=== PATIENT | female | born 1950 | race Asian ===

== ENCOUNTER 2017-09-27 15:02 | Outpatient (CLI) | payer MEDICARE | END 2017-09-27 15:03 | disposition home or self-care (01) | LOC: BICMAMMO 15:02 | PROVIDERS: ATTEND Family Medicine | DX: Z12.31 Encounter for screening mammogram for malignant neoplasm of breast (principal) | CPT/HCPCS: 77063; 77067 ==

== ENCOUNTER 2018-11-23 13:51 | Outpatient (CLI) | payer MEDICARE ==
--- NOTE | 2018-11-23 15:35 | BD ---
Exam: DEXA Bone Density 11/23/18 INDICATION: History of osteoporosis screening. COMPARISON: None. FINDINGS: Lumbar Spine: BMD (g/cm2) T-SCORE Z-SCORE L1 0.943 -0.4 1.3 L2 0.986 -0.4 1.6 L3 1.101 0.2 2.2 L4 1.012 -0.4 1.7 L1-L4 1.016 -0.3 1.7 Left Femoral Neck: 0.799 -0.4 1.2 Left Total Femur: 0.969 0.2 1.6 Impression: Based on WHO criteria, patient's bone mineral density is considered within normal limits. Patient is at low risk for fracture. POS: OFF
--- NOTE | 2018-11-23 15:36 | MMO ---
Bilateral MAMMO Bilat Screen [facility]. CLINICAL HISTORY: Patient is 67 years old and is seen for screening. The patient has no family history of breast cancer. The patient has no personal history of cancer. The patient has a history of right Excisional Biopsy in 2006 - benign. VIEWS: The views performed were: bilateral craniocaudal with tomosynthesis and bilateral mediolateral oblique with tomosynthesis. FILMS COMPARED: The present examination has been compared to prior imaging studies performed at [facility] on 05/08/2014, 07/10/2015, 08/18/2016 and 09/27/2017. This study has been interpreted with the assistance of computer-aided detection. MAMMOGRAM FINDINGS: The breasts are almost entirely fat. There are benign appearing calcifications seen in both breasts. There are no suspicious masses, suspicious calcifications, or new areas of architectural distortion. IMPRESSION: THERE IS NO MAMMOGRAPHIC EVIDENCE OF MALIGNANCY. A ROUTINE FOLLOW-UP MAMMOGRAM IN 1 YEAR IS RECOMMENDED. THE RESULTS OF THIS EXAM WERE SENT TO THE PATIENT. ACR BI-RADS Category 2 - Benign finding MAMMOGRAPHY NOTE: 1. A negative mammogram report should not delay a biopsy if a dominant of clinically suspicious mass is present. 2. Approximately 10% to 15% of breast cancers are not detected by mammography. 3. Adenosis and dense breasts may obscure an underlying neoplasm. Reported by: FLETCHER FLYNN MD Electonically Signed: [id number]
== END 2018-11-23 13:52 | disposition home or self-care (01) ==
LOC: BICMAMMO 13:51
DX: Z12.31 Encounter for screening mammogram for malignant neoplasm of breast (principal); Z13.820 Encounter for screening for osteoporosis
CPT/HCPCS: 77063; 77067; 77080

== ENCOUNTER 2019-11-26 11:51 | Outpatient (CLI) | payer MEDICARE ==
--- NOTE | 2019-11-26 13:08 | MMO ---
Bilateral MAMMO Bilat Screen [facility]. CLINICAL HISTORY: Patient is 68 years old and is seen for screening. The patient has no family history of breast cancer. The patient has no personal history of cancer. The patient has a history of right Excisional Biopsy in 2006 - benign. VIEWS: The views performed were: bilateral craniocaudal with tomosynthesis and bilateral mediolateral oblique with tomosynthesis. FILMS COMPARED: The present examination has been compared to prior imaging studies performed at [facility] on 07/10/2015, 08/18/2016, 09/27/2017 and 11/23/2018. This study has been interpreted with the assistance of computer-aided detection. MAMMOGRAM FINDINGS: The breasts are almost entirely fat. There are no suspicious masses, suspicious calcifications, or new areas of architectural distortion. IMPRESSION: THERE IS NO MAMMOGRAPHIC EVIDENCE OF MALIGNANCY. A ROUTINE FOLLOW-UP MAMMOGRAM IN 1 YEAR IS RECOMMENDED. THE RESULTS OF THIS EXAM WERE SENT TO THE PATIENT. ACR BI-RADS Category 1 - Negative MAMMOGRAPHY NOTE: 1. A negative mammogram report should not delay a biopsy if a dominant of clinically suspicious mass is present. 2. Approximately 10% to 15% of breast cancers are not detected by mammography. 3. Adenosis and dense breasts may obscure an underlying neoplasm. Reported by: TATIANA PURI MD Electonically Signed: [id number]
== END 2019-11-26 11:52 | disposition home or self-care (01) ==
LOC: BICMAMMO 11:51
PROVIDERS: ATTEND Family Medicine
DX: Z12.31 Encounter for screening mammogram for malignant neoplasm of breast (principal); Z91.89 Other specified personal risk factors, not elsewhere classified
CPT/HCPCS: 77063; 77067

== ENCOUNTER 2020-11-26 12:23 | Outpatient (CLI) | payer MEDICARE | END 2020-11-26 12:24 | disposition home or self-care (01) | LOC: BICMAMMO 12:23 | PROVIDERS: ATTEND Family Medicine | DX: Z12.31 Encounter for screening mammogram for malignant neoplasm of breast (principal) | CPT/HCPCS: 77063; 77067 ==

== ENCOUNTER 2020-12-08 12:58 | Outpatient (CLI) | payer MEDICARE, OTHER | END 2020-12-08 12:59 | disposition home or self-care (01) | LOC: BICCT 12:58 | PROVIDERS: ATTEND Neurological Surgery | DX: M54.50 Low back pain, unspecified (principal); R19.02 Left upper quadrant abdominal swelling, mass and lump; M47.816 Spondylosis without myelopathy or radiculopathy, lumbar region; M48.061 Spinal stenosis, lumbar region without neurogenic claudication; Z98.890 Other specified postprocedural states | CPT/HCPCS: 72131 ==

== ENCOUNTER 2021-01-26 12:05 | Outpatient (CLI) | payer MEDICARE | END 2021-01-26 12:06 | disposition home or self-care (01) | LOC: PET 12:05 | PROVIDERS: ATTEND Internal Medicine Hematology & Oncology | DX: E27.8 Other specified disorders of adrenal gland (principal); C74.12 Malignant neoplasm of medulla of left adrenal gland | CPT/HCPCS: 78815; A9552 ==

== ENCOUNTER 2021-12-21 10:40 | Outpatient (CLI) | payer MEDICARE, OTHER | END 2021-12-21 10:41 | disposition home or self-care (01) | LOC: BICMAMMO 10:40 | PROVIDERS: ATTEND Family Medicine | DX: Z12.31 Encounter for screening mammogram for malignant neoplasm of breast (principal); Z91.89 Other specified personal risk factors, not elsewhere classified | CPT/HCPCS: 77063; 77067 ==

== ENCOUNTER 2023-08-21 07:56 | Outpatient (CLI) | payer OTHER ==
[2023-08-21 09:44] LABS: #Eosinphils 0.33 10x3/uL (0.0-0.5); #Monocytes 0.43 10x3/uL (0.0-1.1); #Neutrophils 2.62 10x3/uL (1.5-8.4); %Basophils 1.6 % (0.0-2.0); %Eosinophils 5.3 % (0.0-6.0); %Lymphocytes 43.9 % (18.0-47.0); %Monocytes 6.9 % (0.0-10.0); Hematocrit 36.6 % (34.9-44.5); Hemoglobin 12.3 g/dL (12.0-15.5); Mean Corpuscular HGB CONC 33.6 g/dL (32.0-36.0); Mean Corpuscular Hemoglobin 28.1 pg (27.0-33.0); Mean Corpuscular Volume 83.6 fL (81.6-98.3); Mean Platelet Volume 12.2 fL (7.4-10.4); Platelet Count 238 10x3/uL (150-450); RBC Distribution Width 13.7 % (11.5-14.5); Red Blood Cell (RBC) Count 4.38 10x6/uL (3.90-5.03); White Blood Cell (WBC) Count 6.2 10x3/uL (3.5-10.5)
== END 2023-08-21 07:57 | disposition home or self-care (01) ==
LOC: LABBT 07:56
PROVIDERS: ATTEND Orthopaedic Surgery Hand Surgery
DX: Z01.818 Encounter for other preprocedural examination (principal); M65.311 Trigger thumb, right thumb
CPT/HCPCS: 85025; 93005; 93010

== ENCOUNTER 2023-08-25 10:33 | Day surgery (SDC) | payer OTHER ==
[2023-08-21 08:39] VITALS: BMI 38.4
[2023-08-25] MEDS ORDERED: Bacitracin Zinc Ointment 30 gm TUBE ONE (14:47)
[2023-08-25] MEDS ORDERED: Bupivacaine PF 0.5% 30 ML VIAL ONE (14:47)
[2023-08-25] MEDS ORDERED: Thrombin 5000 UNITS/5 ML VIAL ONE (14:47)
[2023-08-25] MEDS ORDERED: PROPOFOL 20 ML ONE (14:59)
[2023-08-25] MEDS ORDERED: Rocuronium Bromide 10 MG/ML (10ML VIAL) ONE (14:59)
[2023-08-25] MEDS ORDERED: fentaNYL PF 100 MCG/2 ML SYRINGE ONE (15:00)
[2023-08-25] MEDS ORDERED: Lidocaine 1% PF 5 ML VIAL ONE (15:00)
[2023-08-25] MEDS ORDERED: Sodium Chloride 0.9% 100 ML ONE (15:07)
[2023-08-25] MEDS ORDERED: CEFAZOLIN 2 GM VIAL ONE (15:07)
[2023-08-25] MEDS ORDERED: SUGAMMADEX SODIUM 200 MG/2 ML VIAL ONE (16:47)
[2023-08-25] MEDS ORDERED: Ondansetron PF 4 MG/2 ML Vial ONE (16:48)
[2023-08-25] MEDS ORDERED: Ketorolac Tromethamine 30 MG (1 mL) VIAL ONE (17:56)
== END 2023-08-25 18:00 | disposition home or self-care (01) ==
LOC: SDC 10:33
PROVIDERS: ATTEND Orthopaedic Surgery Hand Surgery
PROC: 0LN70ZZ Release Right Hand Tendon, Open Approach (ICD-10-PCS; principal; 2023-08-25)
PROC: 0LN70ZZ Release Right Hand Tendon, Open Approach (ICD-10-PCS; 2023-08-25)
PROC: 0MQ70ZZ Repair Right Hand Bursa and Ligament, Open Approach (ICD-10-PCS; 2023-08-25)
DX: S63.418A Traumatic rupture of collateral ligament of other finger at metacarpophalangeal and interphalangeal joint, initial encounter (principal); M65.311 Trigger thumb, right thumb; M65.341 Trigger finger, right ring finger; I10 Essential (primary) hypertension; Z79.899 Other long term (current) drug therapy; Z88.8 Allergy status to other drugs, medicaments and biological substances; Z91.011 Allergy to milk products; W19.XXXA Unspecified fall, initial encounter
CPT/HCPCS: 26055 ×2; 26541; 73120; C1713; J0665; J1885; J2704; J3490

== ENCOUNTER 2024-12-04 08:12 | Outpatient (CLI) | payer OTHER | END 2024-12-04 08:13 | disposition home or self-care (01) | LOC: SCSBT 08:12 | PROVIDERS: ATTEND Family Medicine | DX: Z78.0 Asymptomatic menopausal state (principal); M85.852 Other specified disorders of bone density and structure, left thigh | CPT/HCPCS: 77080 ==